=== PATIENT | male | born 1960 | race African-American/Black ===

== ENCOUNTER 2016-03-19 10:34 | Emergency (ER) | payer OTHER ==
[2016-03-19 11:12] VITALS: BP 144/84
[2016-03-19] MEDS ORDERED: cefTRIAXone VIAL(*) 250 MG VIAL IM ONE (11:36)
[2016-03-19] MEDS ORDERED: Azithromycin TAB* 250 MG PO ONE (11:36)
--- NOTE | 2016-03-19 11:36 | UC ---
Complaint Male HPI - HPI Summary HPI Summary: exposed to Std. Gonorrhea she believes - History of Current Complaint Chief Complaint: UCGeneralIllness Stated Complaint: STD TREATMENT Time Seen by Provider: 03/19/16 11:22 Hx Obtained From: Patient Onset/Duration: Lasting Days, Still Present Timing: Constant Severity Currently: Mild Pain Intensity: 3 Location: None Character: Burning Aggravating Factor(s): Voiding Associated Signs And Symptoms: Negative: Back Pain, Fever, Hematuria, Dysuria, Rectal Pain, Appetite, Nausea, Vomiting(# Of Episodes =), Penile Swelling - Allergies/Home Medications Allergies/Adverse Reactions: Allergies Allergy/AdvReac Type Severity Reaction Status Date / Time No Known Allergies Allergy Verified 03/19/16 11:13 Home Medications: Home Medications NK [No Home Medications Reported] 03/19/16 [History Confirmed 03/19/16] PMH/Surg Hx/FS Hx/Imm Hx Previously Healthy: No Endocrine History Of: Denies: Diabetes, Thyroid Disease Cardiovascular History Of: Denies: Cardiac Disorders, Hypertension Respiratory History Of: Denies: COPD, Asthma GI/ History Of: Denies: Ulcer Psychological History Of: Reports: Bipolar Disorder - Surgical History Surgical History: Yes Surgery Procedure, Year, and Place: left hand x2 - Family History Known Family History: Positive: Other Family History: no cardiovascular illness in family lineage - Social History Occupation: Employed Full-time Lives: With Family Alcohol Use: Occasionally Substance Use Type: None Smoking Status (MU): Heavy Every Day Tobacco Smoker Amount Used/How Often: 1/2 ppd Have You Smoked in the Last Year: Yes Cessation Counseling: Patient Advised to Stop Review of Systems Constitutional: Negative Skin: Negative Eyes: Negative ENT: Negative Respiratory: Negative Cardiovascular: Negative Gastrointestinal: Negative Genitourinary: Dysuria Motor: Negative Neurovascular: Negative Musculoskeletal: Negative Neurological: Negative Psychological: Negative All Other Systems Reviewed And Are Negative: Yes Physical Exam Triage Information Reviewed: Yes Appearance: Well-Appearing, No Pain Distress, Well-Nourished Vital Signs: Initial Vital Signs Temp 98.8 F 03/19/16 11:09 Pulse 74 03/19/16 11:09 Resp 16 03/19/16 11:09 BP 144/84 03/19/16 11:09 Pulse Ox 100 03/19/16 11:09 Vital Signs Reviewed: Yes Eye Exam: Normal Eyes: Positive: Conjunctiva Clear ENT Exam: Normal ENT: Positive: Normal ENT inspection, Hearing grossly normal, TMs normal. Negative: Nasal congestion, Nasal drainage, Tonsillar swelling, Tonsillar exudate, Trismus, Muffled/hoarse voice Neck exam: Normal Neck: Positive: Supple, Nontender, No Lymphadenopathy Respiratory Exam: Normal Respiratory: Positive: Chest non-tender, Lungs clear, Normal breath sounds, No respiratory distress, No accessory muscle use Cardiovascular Exam: Normal Cardiovascular: Positive: RRR, No Murmur, Pulses Normal, Brisk Capillary Refill Musculoskeletal Exam: Normal Musculoskeletal: Positive: Strength Intact, ROM Intact, No Edema Neurological Exam: Normal Neurological: Positive: Alert Psychological Exam: Normal Skin Exam: Normal Complaint Male Course/Dx - Course Course Of Treatment: Rocephin, Zithromax, increase fluids, [facility], no sexual relations for 2 weeks - Differential Dx/Diagnosis Differential Diagnosis/HQI/PQRI: Cancer, Pyelonephritis, Urinary Tract Infection Provider Diagnoses: STD Treatment Discharge - Discharge Plan Condition: Stable Disposition: HOME Patient Education Materials: Sexually Transmitted Diseases (ED), Safe Sex (ED) Referrals: Lilia Smith MD [Medical Doctor] - 2 Weeks No Primary Care Phys,NOPCP [Medical Doctor] - If Needed Additional Instructions: No sexual relations for 2 weeks [facility] at [phone] for retesting
[2016-03-19] MEDS ORDERED: Lidocaine 1% MPF* 2 ML VIAL ONE (11:52)
== END 2016-03-19 12:01 | disposition home or self-care (01) ==
LOC: UCEAST 10:34
DX: Z20.2 Contact with and (suspected) exposure to infections with a predominantly sexual mode of transmission (principal); F17.210 Nicotine dependence, cigarettes, uncomplicated; Z71.6 Tobacco abuse counseling; R30.0 Dysuria
CPT/HCPCS: 81002; 87086; 87491; 87591; 96372; 99212; A9270-GY; G0463; J0696

== ENCOUNTER 2018-11-10 12:53 | Emergency (ER) | payer OTHER ==
[2018-11-10 13:06] VITALS: BP 116/72
--- NOTE | 2018-11-10 14:13 | UC ---
Skin Complaint HPI - HPI Summary HPI Summary: 2 area of honey crusted scabs atop of head--no injury never had anything similar in the past - History of Current Complaint Chief Complaint: UCSkin Time Seen by Provider: 11/10/18 14:05 Stated Complaint: SKIN COMP Hx Obtained From: Patient Onset/Duration: Sudden Onset, Lasting Days, Still Present Timing: Constant Onset Severity: Moderate Pain Intensity: 7 Pain Scale Used: 0-10 Numeric Location: Discrete Character: Pain, Raised Aggravating Factor(s): Touch Alleviating Factor(s): Nothing Associated Signs & Symptoms: Positive: Negative - Allergy/Home Medications Allergies/Adverse Reactions: Allergies Allergy/AdvReac Type Severity Reaction Status Date / Time No Known Allergies Allergy Verified 11/10/18 13:07 PMH/Surg Hx/FS Hx/Imm Hx Previously Healthy: Yes - Surgical History Surgical History: Yes Surgery Procedure, Year, and Place: left hand x2 - Family History Known Family History: Positive: None, Other Family History: no cardiovascular illness in family lineage - Social History Occupation: Employed Part-time Lives: With Family Alcohol Use: None Substance Use Type: None Smoking Status (MU): Heavy Every Day Tobacco Smoker Amount Used/How Often: 1/2 ppd Have You Smoked in the Last Year: Yes When Did the Patient Quit Smoking/Using Tobacco: "commited to keep trying to quit smoking" Review of Systems All Other Systems Reviewed And Are Negative: Yes Constitutional: Positive: Negative Skin: Positive: Other - 2 dime size area of honey crusted scabbing on top of head Eyes: Positive: Negative ENT: Positive: Negative Respiratory: Positive: Negative Cardiovascular: Positive: Negative Gastrointestinal: Positive: Negative Genitourinary: Positive: Negative Motor: Positive: Negative Neurovascular: Positive: Negative Musculoskeletal: Positive: Negative Neurological: Positive: Negative Psychological: Positive: Negative Is Patient Immunocompromised?: No Physical Exam Triage Information Reviewed: Yes Appearance: Well-Appearing, No Pain Distress, Well-Nourished Vital Signs: Initial Vital Signs Temp 98 F 11/10/18 13:04 Pulse 83 11/10/18 13:04 Resp 18 11/10/18 13:04 BP 116/72 11/10/18 13:04 Pulse Ox 100 11/10/18 13:04 Vital Signs Reviewed: Yes Eye Exam: Normal Eyes: Positive: Conjunctiva Clear ENT Exam: Normal ENT: Positive: Normal ENT inspection, Hearing grossly normal. Negative: Nasal congestion, Trismus, Muffled voice, Hoarse voice Dental Exam: Other Dental: Positive: Other: - multiple missing teeth Neck exam: Normal Neck: Positive: Supple Respiratory Exam: Normal Respiratory: Positive: Chest non-tender, No respiratory distress, No accessory muscle use Cardiovascular Exam: Normal Cardiovascular: Positive: Pulses Normal, Brisk Capillary Refill Musculoskeletal Exam: Normal Musculoskeletal: Positive: Strength Intact, ROM Intact Neurological Exam: Normal Neurological: Positive: Alert, Muscle Tone Normal Psychological Exam: Normal Skin: Positive: Other - scabs atop of head with honey crusting drainage Course/Dx - Course Course Of Treatment: mild soap and water wash, bactrim, bactroban, follow with pcp rrn should lesions worsen or fail to improve - Diagnoses Provider Diagnosis: Impetigo any site Discharge ED - Sign-Out/Discharge Documenting (check all that apply): Patient Departure All imaging exams completed and their final reports reviewed: No Studies - Discharge Plan Condition: Stable Disposition: HOME Prescriptions: Mupirocin 2% OINT* [Bactroban 2 % Oint*] 1 applic TOPICAL BID #1 tube Sulfamethox/Trimethoprim DS* [Bactrim DS 800/160 TAB*] 1 tab PO BID #14 tab Patient Education Materials: Impetigo (DC), Folliculitis (ED) Referrals: Destin Saleh NP [Primary Care Provider] - 2 Weeks - Billing Disposition and Condition Condition: STABLE Disposition: Home
== END 2018-11-10 14:17 | disposition home or self-care (01) ==
LOC: UCEAST 12:53
DX: L01.00 Impetigo, unspecified (principal); F17.210 Nicotine dependence, cigarettes, uncomplicated
CPT/HCPCS: 99212; G0463

== ENCOUNTER 2018-11-14 12:42 | Emergency (ER) | payer OTHER ==
[2018-11-14] MEDS ORDERED: Lidocaine 1% MPF ** 5 ML VIAL INJ ONE (14:28)
[2018-11-14 14:45] LABS: ABS Eosinophils 0.1 10^3/ul (0-0.6); ABS Lymphocytes 1.8 10^3/ul (1.0-4.8); ABS Monocytes 1.1 10^3/ul (0-0.8); ABS Neutrophils 3.6 10^3/ul (1.5-7.7); Eosinophil % 0.9 %; Hematocrit 35 % (42-52); Hemoglobin 11.7 g/dL (14.0-18.0); Lymphocyte % 27.2 %; Mean Corpuscular HGB Conc 34 g/dL (31-36); Mean Corpuscular Hemoglobin 31 pg (27-31); Mean Corpuscular Volume 92 fL (80-94); Mean Platelet Volume 7.2 fL (7.4-10.4); Nucleated Red Blood Cells % 0.1; Platelet Count 258 10^3/uL (150-450); Red Blood Count 3.75 10^6 /uL (4.18-5.48); Red Cell Distribution Width 13 % (10-15); White Blood Count 6.6 10^3/uL (3.5-10.8)
[2018-11-14 15:02] LABS: Albumin 4.1 g/dL (3.2-5.2); Albumin/Globulin Ratio 1.3 (1-3); BUN/Creatinine Ratio 11.6 (8-20); C Reactive Protein 9.8 mg/L (<8.01); EGFR African American 81.8 (>60); EGFR Non-African American 67.6 (>60); Globulin 3.1 g/dL (2-4); Total Bilirubin 0.5 mg/dL (0.2-1.0); Total Protein 7.2 g/dL (6.4-8.9)
[2018-11-14 16:04] VITALS: BP 115/58
--- NOTE | 2018-11-14 17:57 | ED ---
Skin Complaint - HPI Summary HPI Summary: Patient is a 58-year-old male who presents emergency department for painful bumps to scalp 2 weeks. Patient was seen at [facility] 4 days ago and started on Bactrim. Patient states there has been some drainage but symptoms have not been improving. Notes associated symptoms of fever and chills. Denies past medical history. Patient notes he has had boils in other locations in the past. Symptoms are mild in severity. Touching affected area makes symptoms worse. Rest makes symptoms better. Patient also notes he is having mild intermittent dysuria and request testing for gonorrhea and chlamydia. - History of Current Complaint Chief Complaint: EDRashSkinAbscess Time Seen by Provider: 11/14/18 14:01 Stated Complaint: SORES ON TOP HEAD Hx Obtained From: Patient Pain Intensity: 0 Pain Scale Used: 0-10 Numeric - Allergy/Home Medications Allergies/Adverse Reactions: Allergies Allergy/AdvReac Type Severity Reaction Status Date / Time No Known Allergies Allergy Verified 11/10/18 13:07 PMH/Surg Hx/FS Hx/Imm Hx Previously Healthy: Yes Endocrine/Hematology History: Denies: Hx Diabetes, Hx Thyroid Disease Cardiovascular History: Denies: Hx Hypertension Respiratory History: Reports: Other Respiratory Problems/Disorders - SMOKER Denies: Hx Asthma, Hx Chronic Obstructive Pulmonary Disease (COPD) GI History: Denies: Hx Ulcer Musculoskeletal History: Reports: Hx Orthopedic Injury - left hand Sensory History: Reports: Hx Contacts or Glasses - GLASSES Denies: Hx Hearing Aid Opthamlomology History: Reports: Hx Contacts or Glasses - GLASSES Psychiatric History: Reports: Hx Bipolar Disorder - Surgical History Surgery Procedure, Year, and Place: left hand x2 Hx Anesthesia Reactions: No Infectious Disease History: No Infectious Disease History: Denies: Hx Hepatitis, Hx Human Immunodeficiency Virus (HIV), History Other Infectious Disease, Traveled Outside the [place] in Last 30 Days - Family History Known Family History: Positive: None, Other, Non-Contributory Family History: no cardiovascular illness in family lineage - Social History Occupation: Unemployed Lives: Alone Alcohol Use: None Substance Use Type: Reports: None Smoking Status (MU): Heavy Every Day Tobacco Smoker Amount Used/How Often: 1/2 ppd Have You Smoked in the Last Year: Yes Review of Systems Positive: Fever, Chills Negative: Vomiting, Nausea Positive: dysuria Positive: Other - painful bumps to scalp All Other Systems Reviewed And Are Negative: Yes Physical Exam Triage Information Reviewed: Yes Vital Signs On Initial Exam: Initial Vitals Temp Pulse Resp BP Pulse Ox 99.5 F 91 18 116/89 100 11/14/18 12:44 11/14/18 12:44 11/14/18 12:44 11/14/18 12:44 11/14/18 12:44 Vital Signs Reviewed: Yes Appearance: Positive: Well-Appearing - Patient sitting in bed in no acute distress. Skin: Positive: Warm, Dry Head/Face: Positive: Other - Two roughly 2 cm in diameter areas of fluctuance and pain noted to the left aspect of the superior scalp. To the right of the scalp there are 2 smaller areas of fluctuance and inferior there is one small area of fluctuance. Left occipital lymphadenopathy noted as well. Eyes: Positive: Normal, EOMI Neck: Positive: Supple Respiratory/Lung Sounds: Positive: Clear to Auscultation, Breath Sounds Present Cardiovascular: Positive: Normal, RRR Neurological: Positive: Normal, CN Intact II-III Psychiatric: Positive: Affect/Mood Appropriate Procedures - Sedation Patient Received Moderate/Deep Sedation with Procedure: No - Incision and Drainage Posterior Head Site: Scalp Anesthesia: Local, Lidocaine Instrument(s): Scalpel, Other - Purulent matter expressed from all 5 area that were incised. No packing placed. Pt. tolerated well. Diagnostics - Vital Signs Vital Signs Temp Pulse Resp BP Pulse Ox 11/14/18 16:04 99.3 F 85 18 115/58 97 11/14/18 12:44 99.5 F 91 18 116/89 100 - Laboratory Lab Results: Lab Results 11/14/18 11/14/18 Range/Units 14:22 14:22 WBC 6.6 (3.5-10.8) 10^3/uL RBC 3.75 L (4.18-5.48) 10^6 /uL Hgb 11.7 L (14.0-18.0) g/dL Hct 35 L (42-52) % MCV 92 (80-94) fL MCH 31 (27-31) pg MCHC 34 (31-36) g/dL RDW 13 (10-15) % Plt Count 258 (150-450) 10^3/uL MPV 7.2 L (7.4-10.4) fL Neut % (Auto) 54.5 % Lymph % (Auto) 27.2 % [place] % (Auto) 16.7 % Eos % (Auto) 0.9 % Baso % (Auto) 0.7 % Absolute Neuts (auto) 3.6 (1.5-7.7) 10^3/ul Absolute Lymphs (auto) 1.8 (1.0-4.8) 10^3/ul Absolute Monos (auto) 1.1 H (0-0.8) 10^3/ul Absolute Eos (auto) 0.1 (0-0.6) 10^3/ul Absolute Basos (auto) 0.0 (0-0.2) 10^3/ul Absolute Nucleated RBC 0.0 10^3/ul Nucleated RBC % 0.1 Sodium 134 L (135-145) mmol/L Potassium 5.0 (3.5-5.0) mmol/L Chloride 101 (101-111) mmol/L Carbon Dioxide 29 (22-32) mmol/L Anion Gap 4 (2-11) mmol/L BUN 13 (6-24) mg/dL Creatinine 1.12 (0.67-1.17) mg/dL Est GFR ( Amer) 81.8 (>60) Est GFR (Non-Af Amer) 67.6 (>60) BUN/Creatinine Ratio 11.6 (8-20) Glucose 107 H (70-100) mg/dL Calcium 9.0 (8.6-10.3) mg/dL Total Bilirubin 0.50 (0.2-1.0) mg/dL AST 19 (13-39) U/L ALT 11 (7-52) U/L Alkaline Phosphatase 89 (34-104) U/L C-Reactive Protein 9.80 H (<8.01) mg/L Total Protein 7.2 (6.4-8.9) g/dL Albumin 4.1 (3.2-5.2) g/dL Globulin 3.1 (2-4) g/dL Albumin/Globulin Ratio 1.3 (1-3) Result Diagrams: 11/14/18 14:22 11/14/18 14:22 Lab Statement: Any lab studies that have been ordered have been reviewed, and results considered in the medical decision making process. Course/Dx - Course Course Of Treatment: Patient presenting with numerous small areas of fluctuance to scalp. Low-grade fever. Blood work unremarkable. Areas were incised and drained as noted above. We'll place patient on clindamycin. Pending wound culture. Advised warm compresses 3 times a day. To clean scalp with warm soap and water. To follow-up with PCP for wound check in 3 days. To return to the ER symptoms change or worsen. Patient understands and agrees with plan. - Differential Diagnoses - Skin Complaint Differential Diagnoses: Abscess, Cellulitis, Contact Dermatitis, Eczema - Diagnoses Provider Diagnoses: Abscess, Folliculitis Discharge ED - Sign-Out/Discharge Documenting (check all that apply): Patient Departure - Discharge Plan Condition: Improved Disposition: HOME Prescriptions: Clindamycin HCl 300 mg PO QID #40 capsule Patient Education Materials: Abscess (ED) Referrals: Destin Saleh NP [Primary Care Provider] - Additional Instructions: Follow up with PCP in 3 days for wound check Take Clindamycin as directed Apply warm compresses Wash scalp with warm soap and water daily Return to ER for increased swelling, redness, or if concerned - Billing Disposition and Condition Condition: IMPROVED Disposition: Home
[2018-11-15 13:23] LABS: Chlamydia trachomatis NAA Negative (Negative); Neisseria gonorrhoeae (GC) NAA Negative (Negative)
--- NOTE | 2018-11-16 05:55 | ED ---
Imaging and Labs Follow Up Follow Up Type: Labs/Cultures Labs/Culture Result: MRSA + Patient Communication/Plan: Patient was appropriately treated prior to discharge Provider Diagnoses: Abscess, Folliculitis
== END 2018-11-14 16:04 | disposition home or self-care (01) ==
LOC: ED 12:42
DX: L02.811 Cutaneous abscess of head [any part, except face] (principal); L73.9 Follicular disorder, unspecified; F31.9 Bipolar disorder, unspecified; F17.200 Nicotine dependence, unspecified, uncomplicated
CPT/HCPCS: 10060; 36415; 80053; 85025; 86140; 87070; 87077; 87186; 87205; 87491; 87591; 87640; 87641; 99282

== ENCOUNTER 2019-04-02 14:11 | Emergency (ER) | payer SELFPAY ==
[2019-04-02 15:30] VITALS: BP 107/69
--- NOTE | 2019-04-02 15:45 | UC ---
Skin Complaint HPI - HPI Summary HPI Summary: 58 yo male presents with ?abscess. He tells me that about a week ago he used a new deodorant and the next day developed small red bumps under his b/l arms ( right > left). Since that time the right axilla bumps have grown and become red and tender. He has had this happen in the past and has needed them lanced -- he is requesting this today. Denies fever, chills, or hx of MRSA - History of Current Complaint Chief Complaint: UCSkin Time Seen by Provider: 04/02/19 15:44 Stated Complaint: ABSCESSES IN ARMPITS Hx Obtained From: Patient Onset/Duration: Gradual Onset Onset Severity: Moderate Current Severity: Moderate Pain Intensity: 7 Pain Scale Used: 0-10 Numeric - Allergy/Home Medications Allergies/Adverse Reactions: Allergies Allergy/AdvReac Type Severity Reaction Status Date / Time No Known Allergies Allergy Verified 04/02/19 15:27 Home Medications: Home Medications Ointment For Boils 1 applic TOPICAL ONCE PRN 04/02/19 [History Confirmed ] Sulfamethox/Trimethoprim DS* [Bactrim DS 800/160 TAB*] 1 tab PO BID #14 tab [Rx] PMH/Surg Hx/FS Hx/Imm Hx - Additional Past Medical History Additional PMH: None - Surgical History Surgical History: Yes Surgery Procedure, Year, and Place: left hand x2 - Family History Known Family History: Positive: Other, Non-Contributory Family History: no cardiovascular illness in family lineage - Social History Lives: With Family Alcohol Use: None Substance Use Type: None Smoking Status (MU): Heavy Every Day Tobacco Smoker Amount Used/How Often: 1/2 ppd Have You Smoked in the Last Year: Yes When Did the Patient Quit Smoking/Using Tobacco: "commited to keep trying to quit smoking" Review of Systems All Other Systems Reviewed And Are Negative: No Constitutional: Positive: Negative Skin: Positive: Other - abscess Respiratory: Positive: Negative Cardiovascular: Positive: Negative Gastrointestinal: Positive: Negative Neurological/Mental Status: Positive: Negative Psychological: Positive: Negative Physical Exam - Summary Physical Exam Summary: GENERAL: NAD. WDWN. No pain distress. SKIN: RIGHT AXILLA: Three abscesses. 1) linear 3.5cm x 1.0cm area of induration , erythema, warmth, and ttp. Fluctuant. 2) Similar appearing area 1.5cm x 1.0.cm area. 3) 1.0cm x 1.0cm similar appearing area. NECK: Supple. Nontender. No lymphadenopathy. CHEST: No accessory muscle use. Breathing comfortably and in no distress. CV: Pulses intact. Cap refill <2seconds NEURO: Alert. PSYCH: Age appropriate behavior. Triage Information Reviewed: Yes Vital Signs: Initial Vital Signs Temp 99.8 F 04/02/19 15:24 Pulse 74 04/02/19 15:24 Resp 18 04/02/19 15:24 BP 107/69 04/02/19 15:24 Pulse Ox 98 04/02/19 15:24 Vital Signs Reviewed: Yes Procedures - Incision and Drainage Right Axilla Anesthesia: Local - lidocaine Instrument(s): Scalpel - #11 Course/Dx - Course Course Of Treatment: The procedure was explained to the pt and all questions were answered. A time out was performed, witnessed, and signed. The area was cleansed with alcohol pad. 2mL of 2% lidocaine without epi was administered to the largest abscess and good anesthetization was achieved. A #11 blade was used to dinora the central most part of the abscess and copious white/yellow purulent matter was expressed. The wound was bandaged with telfa. Pt tolerated procedure well. Will place him on bactrim. - Diagnoses Provider Diagnosis: Abscess, axilla Discharge ED - Sign-Out/Discharge Documenting (check all that apply): Patient Departure All imaging exams completed and their final reports reviewed: No Studies - Discharge Plan Condition: Stable Disposition: HOME Prescriptions: Sulfamethox/Trimethoprim DS* [Bactrim DS 800/160 TAB*] 1 tab PO BID #14 tab Patient Education Materials: Abscess (ED) Referrals: Destin Saleh NP [Primary Care Provider] - Additional Instructions: If you develop a fever, shortness of breath, chest pain, new or worsening symptoms - please call your PCP or go to the ED immediately. Change the bandaged daily. Apply a warm compress to the area - Billing Disposition and Condition Condition: STABLE Disposition: Home
[2019-04-02] MEDS ORDERED: Lidocaine 2% PF * 5 ML VIAL INJ ONE (15:57)
== END 2019-04-02 16:50 | disposition home or self-care (01) ==
LOC: UCEAST 14:11
DX: L02.412 Cutaneous abscess of left axilla (principal); L02.411 Cutaneous abscess of right axilla; F17.210 Nicotine dependence, cigarettes, uncomplicated
CPT/HCPCS: 10060; 99212; G0463